=== PATIENT | female | born 1970 | race Caucasian/White ===

== ENCOUNTER 2023-07-25 08:23 | Outpatient (AMB) | payer OTHER, SELFPAY ==
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
[2023-07-25 08:35] VITALS: BP 122/94; BMI 24.8
== END 2023-07-25 09:53 | disposition home or self-care (01) ==
PROVIDERS: PCP Nurse Practitioner Family; Visit Provider Nurse Practitioner Family
DX: H81.93 Unspecified disorder of vestibular function, bilateral (principal); F07.81 Postconcussional syndrome; G44.309 Post-traumatic headache, unspecified, not intractable; Z04.3 Encounter for examination and observation following other accident
CPT/HCPCS: 99204

== ENCOUNTER → 2023-07-25 08:23 | Outpatient (BNVA) | payer OTHER, SELFPAY | PROVIDERS: Visit Provider Nurse Practitioner Family ==

== ENCOUNTER 2023-09-03 15:31 | Outpatient (AMB) | payer OTHER, SELFPAY ==
--- NOTE | 2023-09-03 15:31 | MHC.OFFVIS ---
Intake Intake Visit Reasons: 6wk f/u Post-concussive Syndrome/Nausea-Conf Intake Note: patient presents for follow up. Patient states I don't think anything has really changed. Allergies codeine Allergy (Severe, Verified 09/03/23 15:32) Rash duloxetine Allergy (Severe, Verified 09/03/23 15:32) Rash Penicillins Allergy (Severe, Verified 09/03/23 15:32) Anaphylaxis Sulfa (Sulfonamide Antibiotics) Allergy (Severe, Verified 09/03/23 15:32) Anaphylaxis clindamycin Allergy (Unknown, Verified 09/03/23 15:32) Unknown erythromycin base Allergy (Unknown, Verified 09/03/23 15:32) Unknown Medication List - Last Reconciled 09/03/23 by ANG Kim bupropion HCl (Wellbutrin XL) 300 mg PO QAM clonidine HCl 0.1 mg PO BID magnesium oxide 400 mg PO BEDTIME 30 days methylphenidate HCl 10 mg PO BID 30 days ondansetron 4 - 8 mg (1 - 2 x 4 mg) PO BID-TID PRN 30 days riboflavin (vitamin B2) 400 mg PO DAILY 30 days sumatriptan succinate 50 - 100 mg orally at onset of headache, may repeat in 2 hrs PRN; max 2 tabs per day or 4 tabs/week (may take with Advil) 30 days trazodone 100 mg PO BEDTIME vortioxetine (Trintellix) 10 mg PO DAILY HPI HPI Comments History of Present Illness Details 52-yr-old female presents for f/u televideo visit via [email or web address]. Since the last visit, on 08/20/23, pt reported On Friday night [08/15/23] I was getting out of bed, got dizzy, fell over the dog stairs and my right hip slammed into the bed post, I then went down to the floor landing on my back. Friday, Sat & Sun I had neck/pain (which is better now) and have been dizzy and feel like my head is full since Since, she has had increased nausea, lightheadedness. Having 2-3 migarine days per week. Migraine and nausea can be triggered by triggered by car rides or doing too much. Zofran and Sumatriptan has been helpful. She has not seen much change in her cognitive difficulties- since starting Methylphenidtae 5mg bid. She has been having difficulty using her CPAP- as the full face mask causes neck and head pain. [facility] Medical History (Updated 07/25/23 @ 17:04 by ANG Kim) Stage 2 chronic kidney disease TMJ arthralgia Depression with anxiety PTSD (post-traumatic stress disorder) Pelvic floor dysfunction Insomnia HLD (hyperlipidemia) History of hypertension GRETCHEN (generalized anxiety disorder) Endometriosis Diverticulosis Constipation Surgical History Hx of appendectomy H/O rectocele repair H/O ovarian cystectomy H/O: hysterectomy History of right salpingo-oophorectomy Status post anterior colporrhaphy History of left salpingo-oophorectomy Family History Father Coronary artery disease Hyperlipidemia HTN (hypertension) Brother Coronary artery disease Myocardial infarction Sister Coronary artery disease Maternal Grandmother Stroke Maternal Grandfather Stroke Social History Alcohol intake: current Patient Tobacco Use Status: Never used Tobacco Review of Systems Const All systems reviewed & are unremarkable except as noted in HPI and below Physical Exam Const General: cooperative and no acute distress Orientation/consciousness: patient oriented x3 Resp Effort & Inspection: normal respiratory effort and able to speak in complete sentences Neuro General: patient oriented x3, gait normal and CN's II-XI intact bilaterally Cognition (Neuro): normal cognition Motor exam (neuro): 5/5 motor strength present throughout Psych Appearance: grossly normal Mental Status: mental status grossly normal Speech and movement: Normal speech and movement present Affect: normal affect Attitude: cooperative Thought process: Normal thought process present Thought content: Normal thought content present Insight: Good insight present (Psych) Judgement: Good judgement present (Psych) Assessment & Plan Assessment & Plan (1) Postconcussive syndrome: Code(s): F07.81 - Postconcussional syndrome (2) Vestibular dysfunction after traumatic injury: Code(s): H81.90 - Unspecified disorder of vestibular function, unspecified ear (3) Migraine without aura: Code(s): G43.009 - Migraine without aura, not intractable, without status migrainosus (4) Cognitive dysfunction: Code(s): F09 - Unspecified mental disorder due to known physiological condition Plan For ELIZ: Continue APAP [id number] nightly > 4 hrs. Could consider trial of Amitriptyline or Gabapentin, may allow improved mask tolerance. For overall postconcussive management: Continue to try to optimize good self-care, including but not limited to maintaining a healthy diet, adequate fluid intake, adequate sleep, and engaging in regular physical activity. Track headaches For cognitive difficulties: Trial increasing Methylphenidate from 5mg to 10mg bid. Consider referal back to [employer] [employer]/OT Neuropsych eval as ordered. For vestibular s/s: Consider trial of verapamil, amitripyline, and/or referral back to vestibular PT. For acute postconcussive treatment: Continue Zofran prn. Continue Sumatriptan 100mg tab, 1/2 - 1 tab (50-100mg) at onset of headache, may repeat in 2 hours. Max of 2 tabs (200mg) per 24 hours. May adjunct with OTC Tylenol 650mg q 4 hours, Ibuprofen 600mg q 6 hours, or Naproxen 440mg q 12 hrs prn. Previous acute migraine medication trials: Fioricet- helpful but stopped when her migraines subsided. Acute migraine medication contraindications: None at this time For postconcussive headache prevention medication: Riboflavin 400mg qam Magnesium 400mg qhs Previous migraine prevention medication trials: None Migraine prevention medication contraindications: None Pt advsied to abstain from work through f/u visit. Pt to follow-up in 3 months or sooner prn. Medications: New methylphenidate HCl Partial Fill upon patient request. 10 mg PO BID 30 days 60 tabs 0RF Changed From ondansetron 4 - 8 mg (1 - 2 x 4 mg) PO BID-TID 14 days PRN 30 tabs 1RF nausea and vomiting To ondansetron 4 - 8 mg (1 - 2 x 4 mg) PO BID-TID 30 days PRN 30 tabs 1RF nausea and vomiting Refilled sumatriptan succinate (0.5 - 1 x 100 mg) 50 - 100 mg orally at onset of headache, may repeat in 2 hrs PRN; max 2 tabs per day or 4 tabs/week (may take with Advil) 30 days 12 tabs 6RF migraine headache magnesium oxide may hold for loose stools 400 mg PO BEDTIME 30 days 30 tabs 6RF riboflavin (vitamin B2) 400 mg PO DAILY 30 days 30 tabs 6RF Discontinued methylphenidate HCl Partial Fill upon patient request. Discontinued Reason: Doctor's Order 5 mg PO BID 30 days 60 tabs 0RF Telehealth Telehealth Location of provider rendering services: practice address Location of patient: address on file Patient Identification confirmed using: Name, : Yes Telehealth method: video Patient verbally consented to treatment: Yes Patient verbally consented to billing insurance company: Yes Patient informed of any privacy concerns related to visit: Yes Minutes spent on Phone/Video with Pt.: 21 Coding Level of Care Code Tele Est Pt Level 4 (01361) Diagnoses Postconcussive syndrome F07.81 Vestibular dysfunction after traumatic injury H81.90 Migraine without aura G43.009 Cognitive dysfunction F09
== END 2023-09-03 16:00 ==
PROVIDERS: PCP Nurse Practitioner Family; Visit Provider Nurse Practitioner Family
DX: F06.70 Mild neurocognitive disorder due to known physiological condition without behavioral disturbance (principal); F07.81 Postconcussional syndrome; H81.90 Unspecified disorder of vestibular function, unspecified ear; G44.309 Post-traumatic headache, unspecified, not intractable; Z87.820 Personal history of traumatic brain injury
CPT/HCPCS: 99214

== ENCOUNTER → 2023-09-03 15:31 | Outpatient (BNVA) | payer OTHER, SELFPAY | PROVIDERS: PCP Nurse Practitioner Family; Visit Provider Nurse Practitioner Family ==

== ENCOUNTER 2023-12-17 15:36 | Outpatient (AMB) | payer OTHER, SELFPAY ==
--- NOTE | 2023-12-17 15:36 | A.OFFVIS_ITS ---
Intake Intake Visit Reasons: 3 mo f/u Postconcussive syndrome/Nausea-LVM Intake Note: she put me on adhd medication and had adverse reaction I was sleeping alot,I stopped that a while ago. Allergies codeine Allergy (Severe, Verified 12/17/23 15:38) Rash duloxetine Allergy (Severe, Verified 12/17/23 15:38) Rash Penicillins Allergy (Severe, Verified 12/17/23 15:38) Anaphylaxis Sulfa (Sulfonamide Antibiotics) Allergy (Severe, Verified 12/17/23 15:38) Anaphylaxis clindamycin Allergy (Unknown, Verified 12/17/23 15:38) Unknown erythromycin base Allergy (Unknown, Verified 12/17/23 15:38) Unknown Medication List - Last Reconciled 12/17/23 by ANG Kim bupropion HCl (Wellbutrin XL) 300 mg PO QAM clonidine HCl 0.1 mg PO BID magnesium oxide 400 mg PO BEDTIME 30 days ondansetron 4 - 8 mg (1 - 2 x 4 mg) PO BID-TID PRN 30 days riboflavin (vitamin B2) 400 mg PO DAILY 30 days rizatriptan 5 - 10 mg (0.5 - 1 x 10 mg) PO Q2H PRN 21 days sumatriptan succinate 50 - 100 mg orally at onset of headache, may repeat in 2 h rs PRN; max 2 tabs per day or 4 tabs/week (may take with Advil) 30 days trazodone 100 mg PO BEDTIME vortioxetine (Trintellix) 10 mg PO DAILY HPI HPI Comments History of Present Illness Details 53-yr-old female presents for f/u televi kimmy visit via [facility]. Pt reports she underwent emergency cholecystectomy on Nov 08, 2024. Prior to the procedure, she had been nausea, had GI pain, and had a 20 lb weight loss. She did have a mediation reaction, so was kept overnight. She states her GI s/s instantly felt better. She is working w/ PT for both vestibular tx at [facility] in [facility] and back tx at [facility] in [place]. Can have good days and bad days. Today was a more off day at vestibular therapy- did more dry needling behind the ears and head for vestibular and headache s/s. She has been referred to [facility] pain management for the back pain. She did get altagracia-tinted blue light filtering glasses- added to her usual glasses prescription- which is very helpful. However, when she had to return the glasses to have them updated, she had a daily headache. Since receiving them back- the migraine headaches are better. Now having 1 migraine day per week- the sumatriptan helps within an hour. She was given an interval order of Rizatriptan- for a more prolonged headache, unsure of effect as headache was already set in. She did stop the methylphenidate- felt it was making her too sleepy. Still has some cognitive difficulties- states she tried to begin to manage her own doctor's appointments and rods, however she made many mistakes, so now her has oversee her doing this.. Her PT is incorporating cognitive exercises into her vestibular tx. She did psychological evaluation in October, was referred to psychotherapy, which she is doing, however she states it is hard, is a difficult adjustment to not being able to work or even manage her usual activities on her own. [facility] Medical History (Updated 07/25/23 @ 17:04 by ANG Kim) Stage 2 chronic kidney disease TMJ arthralgia Depression with anxiety PTSD (post-traumatic stress disorder) Pelvic floor dysfunction Insomnia HLD (hyperlipidemia) History of hypertension GRETCHEN (generalized anxiety disorder) Endometriosis Diverticulosis Constipation Surgical History Hx of appendectomy H/O rectocele repair H/O ovarian cystectomy H/O: hysterectomy History of right salpingo-oophorectomy Status post anterior colporrhaphy History of left salpingo-oophorectomy Family History Father Coronary artery disease Hyperlipidemia HTN (hypertension) Brother Coronary artery disease Myocardial infarction Sister Coronary artery disease Maternal Grandmother Stroke Maternal Grandfather Stroke Social History Alcohol intake: current Patient Tobacco Use Status: Never used Tobacco Physical Exam Const General: cooperative and no acute distress Orientation/consciousness: patient oriented x3 Resp Effort & Inspection: normal respiratory effort and able to speak in complete sentences Neuro General: patient oriented x3 Cognition (Neuro): normal cognition Psych Appearance: grossly normal Mental Status: mental status grossly normal Speech and movement: Normal speech and movement present Affect: normal affect Attitude: cooperative Results Reviewed Results Reviewed: 10/14/2023, NEUROPSYCHOLOGICAL EVALUATION FEEDBACK SESSION Patient: ??TRICIA JUAREZ? Age: ??52 years?? ? Sex: ?Female?? ? : ?1970 Associated Diagnoses: ??None Author: ??Connor PHD, Debbie Merritt Met with the patient to discuss results and recommendations from her neuropsychological evaluation. She was accompanied by her . For the full report, please refer to the visit dated 09/30/2023. ? Overall, the patient demonstrated globally blunted cognitive scores in the context of variable scores on measures of performance validity and severe nausea, dizziness, and fatigue. ?Her memory performance was not amnestic, and rather suggested difficulties with attending to and efficiently processing the stimuli presented, which seemed to be impacted by her notable physiological symptoms. Given her significant difficulty tolerating testing and variable performance on measures of performance validity, her scores are not felt to reflect an accurate estimate of her highest cognitive abilities and her performance appeared to be very affected by her physical symptoms. ?Of note, this pattern of difficulty seems to reflect the cognitive problems she described in everyday life. ?It is not likely that her remote concussions explain these prolonged symptoms, and recovery from her uncomplicated concussions would be expected by this time. ?Regardless, she is experiencing persistent symptoms, which are understandably distressing. Among individuals with persistent symptoms following concussions, distress about one?s symptoms, avoidance of activities that trigger symptoms, and negative emotions such as guilt, shame, and feelings of incapacity can lead to a maladaptive cycle of thoughts, emotions, and behaviors that worsen these problems. ?Her cognitive symptoms are also likely impacted by visual/vestibular symptoms, fatigue, depressed mood, re-emergence of PTSD symptoms, and her chronic difficulties with pain, GI distress, inconsistently treated sleep apnea, and disrupted sleep.? ? The patient recently underwent cholecystectomy to address nausea/vomiting, and she may also benefit from additional treatment of her vestibular symptoms through physical therapy to aid in management of her dizziness and balance problems. A slow and gradual approach to increasing the intensity of therapy may be beneficial in assisting her with increasing her tolerance to therapy and reducing distress around her vestibular symptoms. ?The patient is currently engaged in treatment with a psychiatrist to manage mental health related s ymptoms and she is strongly encouraged to continue this treatment. ?She would also likely benefit from additional counseling or psychotherapy to aid in managing her recurring trauma symptoms. ?She is also encouraged to continue following up with her primary care provider and GI to address her gastrointestinal symptoms. ?She may wish to discuss with her referring provider whether a referral to a neuro-bindery library technical assistant to rule out any underlying visual problems would be of benefit given her difficulties with eye tracking and dizziness.? ? 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 For overall postconcussive management: Continue to try to optimize good self-care, including but not limited to maintaining a healthy diet, adequate fluid intake, adequate sleep, and engaging in regular physical activity. Track headaches ? For cognitive difficulties: Stop Methylphenidate cause drowsiness Continue cognitive therapy. Continue bupropion, can have cognitive difficulties. Neuropsych eval reviewed. ? For vestibular s/s: Continue vestibular therapy. Consider trial of verapamil, amitripyline.. ? For acute postconcussive treatment: Continue Zofran prn. Continue Sumatriptan 100mg tab, 1/2 - 1 tab (50-100mg) at onset of headache, may repeat in 2 hours. Max of 2 tabs (200mg) per 24 hours. May adjunct with OTC Tylenol 650mg q 4 hours, Ibuprofen 600mg q 6 hours, or Naproxen 440mg q 12 hrs prn. Rizatriptan p.r.n. Previous acute migraine medication trials: Fioricet- helpful but stopped when her migraines subsided. Acute migraine medication contraindications: None at this time ? For postconcussive headache prevention: Continue resistant to blue light filter in classes. Riboflavin 400mg qam Magnesium 400mg qhs Previous migraine prevention medication trials: None Migraine prevention medication contraindications: None ? Pt advsied to abstain from work through f/u visit. ? Pt to follow-up in 3 months or sooner prn. Medications: Discontinued methylphenidate HCl Partial Fill upon patient request. Discontinued Reason: Patient no longer taking 10 mg PO BID 30 days 60 tabs 0RF Telehealth Telehealth Location of provider rendering services: practice address Location of patient: address on file Patient Identification confirmed using: Name, : Yes Telehealth method: video Patient verbally consented to treatment: Yes Patient verbally consented to billing insurance company: Yes Patient informed of any privacy concerns related to visit: Yes Minutes spent on Phone/Video with Pt.: 40 Coding Level of Care Code Tele Est Pt Level 4 (88387) Diagnoses Postconcussive syndrome F07.81 Migraine without aura G43.009 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
== END 2023-12-17 17:00 | disposition home or self-care (01) ==
LOC: HO.HSMS 15:36
PROVIDERS: PCP Nurse Practitioner Family; Visit Provider Nurse Practitioner Family
DX: G44.309 Post-traumatic headache, unspecified, not intractable (principal); F07.81 Postconcussional syndrome; H81.90 Unspecified disorder of vestibular function, unspecified ear; R41.89 Other symptoms and signs involving cognitive functions and awareness
CPT/HCPCS: 99214

== ENCOUNTER → 2023-12-17 15:36 | Outpatient (BNVA) | payer OTHER, SELFPAY | PROVIDERS: PCP Nurse Practitioner Family; Visit Provider Nurse Practitioner Family ==

== ENCOUNTER → 2024-05-11 08:22 | Outpatient (BNVA) | payer OTHER, SELFPAY | PROVIDERS: PCP Nurse Practitioner Family; Visit Provider Nurse Practitioner Family ==

== ENCOUNTER 2024-05-11 08:28 | Outpatient (AMB) | payer OTHER, SELFPAY ==
--- NOTE | 2024-05-11 08:22 | A.OFFVIS_ITS ---
Intake Visit Reasons: 3 mo f/u-CONF Intake Note: Patient following up on several issues she's having. Allergies codeine Allergy (Severe, Verified 05/11/24 08:28) Rash duloxetine Allergy (Severe, Verified 05/11/24 08:28) Rash Penicillins Allergy (Severe, Verified 05/11/24 08:28) Anaphylaxis Sulfa (Sulfonamide Antibiotics) Allergy (Severe, Verified 05/11/24 08:28) Anaphylaxis clindamycin Allergy (Unknown, Verified 05/11/24 08:28) Unknown erythromycin base Allergy (Unknown, Verified 05/11/24 08:28) Unknown Medication List - Last Reconciled 05/11/24 by ANG Kim bupropion HCl XL (Wellbutrin XL) 300 mg PO QAM clonidine HCl 0.1 mg PO BID magnesium oxide 400 mg PO BEDTIME 30 days ondansetron 4 - 8 mg (1 - 2 x 4 mg) PO BID-TID PRN 30 days pantoprazole 40 mg PO DAILY propranolol 10 mg PO TID riboflavin (vitamin B2) 400 mg PO DAILY 30 days rizatriptan 5 - 10 mg (0.5 - 1 x 10 mg) PO Q2H PRN 21 days sumatriptan succinate 50 - 100 mg orally at onset of headache, may repeat in 2 hrs PRN; max 2 tabs per day or 4 tabs/week (may take with Advil) 30 days trazodone 100 mg PO BEDTIME vortioxetine (Trintellix) 10 mg PO DAILY HPI Comments Details: 53-yr-old female presents for f/u televideo visit via [facility] Pt had a hospital admission in March for abd pain. Dx w/ gastritis. Has GI appt tomorrow. Just completing a 10 day course of Prednisone for poison Alejandra- (has 2 days left). Overall, the migraine headaches have been better. Now having 1 full migraine per month. She is still working w/ PT for the dizziness. Activity tolerance had increased, but still had dizziness, nausea, balance is worse w/ increased activity. Still not driving. Still has cognitive difficulties- word searching difficulties, recall. her is supportive. Pt reports last week, she took a helicopter ride. During the ride, she started to not feel well and she has not felt well since- maybe she feels a little bit better but any activity triggers all her s/s. She has been nauseous, dizziness, fatigued, ears/head feel stuffy and dizzy, photophobia. Has not been able to do her eye jumping exercises. It is more difficult to be in a car. She does not feel like herself- she feels that she is not connecting with others. She has reached out to her psychiatrist. Denies recent fevers, sinus congestion. [facility] Medical History (Updated 05/11/24 @ 08:52 by ANG Kim) Stage 2 chronic kidney disease TMJ arthralgia Depression with anxiety PTSD (post-traumatic stress disorder) Pelvic floor dysfunction Insomnia HLD (hyperlipidemia) History of hypertension GRETCHEN (generalized anxiety disorder) Endometriosis Diverticulosis Constipation Surgical History Hx of appendectomy H/O rectocele repair H/O ovarian cystectomy H/O: hysterectomy History of right salpingo-oophorectomy Status post anterior colporrhaphy History of left salpingo-oophorectomy Family History Father Coronary artery disease Hyperlipidemia HTN (hypertension) Brother Coronary artery disease Myocardial infarction Sister Coronary artery disease Maternal Grandmother Stroke Maternal Grandfather Stroke Social History Alcohol intake: current Patient Tobacco Use Status: Never used Tobacco Physical Exam Const General: cooperative and no acute distress Orientation/consciousness: patient oriented x3 Resp Effort & Inspection: normal respiratory effort and able to speak in complete sentences Neuro General: patient oriented x3 Cognition (Neuro): normal cognition Psych Appearance: grossly normal Mental Status: mental status grossly normal Speech and movement: Normal speech and movement present Affect: normal affect Attitude: cooperative Telehealth Telehealth Telehealth Platform: [facility] Location of provider rendering services: practice address Location of patient: address on file Patient Identification confirmed using: Name, : Yes Telehealth method: video Patient verbally consented to treatment: Yes Patient verbally consented to billing insurance company: Yes Patient informed of any privacy concerns related to visit: Yes Minutes spent on Phone/Video with Pt.: 26 Assessment & Plan Assessment & Plan (1) Air sickness: Code(s): T75.3XXA - Motion sickness, initial encounter Category: Medical Plan For ELIZ: Continue APAP [id number] nightly > 4 hrs. ? For overall postconcussive management: Continue to try to optimize good self-care, including but not limited to maintaining a healthy diet, adequate fluid intake, adequate sleep, and engaging in regular physical activity. Track headaches ? For cognitive difficulties: Continue cognitive therapy exercises Continue bupropion, can have cognitive difficulties. Neuropsych eval previously reviewed. Previous tx trials- Methylphenidate caused drowsiness ? For vestibular s/s: Acetazolamide 250mg bid x's 1 week - for exacerbation of vestibular s/s following a helicopter ride. Scopolamine patch q 72hr- prn boat/water travel- pt has upcoming vacation to [facility]. Continue vestibular therapy. Consider trial of verapamil, amitripyline. ? For acute postconcussive treatment: Continue Zofran prn. Continue Sumatriptan 100mg tab, 1/2 - 1 tab (50-100mg) at onset of headache, may repeat in 2 hours. Max of 2 tabs (200mg) per 24 hours. May adjunct with OTC Tylenol 650mg q 4 hours, Ibuprofen 600mg q 6 hours, or Naproxen 440mg q 12 hrs prn. Pt not using Rizatriptan p.r.n. Previous acute migraine medication trials: Fioricet- helpful but stopped when her migraines subsided. Acute migraine medication contraindications: None at this time ? For postconcussive headache prevention: Continue blue light filtering glasses. Riboflavin 400mg qam Magnesium 400mg qhs Previous migraine prevention medication trials: None Migraine prevention medication contraindications: None ? Pt advised to abstain from work through f/u visit. ? Pt to follow-up in 3 months or sooner prn. Medications: New acetazolamide 250 mg PO BID 14 tabs 0RF 7 days T75.3XXA - Motion sickness, initial encounter scopolamine base 1 patch transdermal Q72H PRN 4 ea 0RF motion sickness 14 days Refilled riboflavin (vitamin B2) 400 mg PO DAILY 30 tabs 6RF 30 days ondansetron 4 - 8 mg (1 - 2 x 4 mg) PO BID-TID PRN 30 tabs 1RF nausea and v omiting 30 days magnesium oxide may hold for loose stools 400 mg PO BEDTIME 30 tabs 6RF 30 days Discontinued rizatriptan max 2 tabs per day or 4 tabs per week Discontinued Reason: Doctor's Order 5 - 10 mg (0.5 - 1 x 10 mg) PO Q2H 21 days PRN 12 tabs 3RF migraine headache Coding Level of Care Code Tele Est Pt Level 4 (63449) Diagnoses Air sickness T75.3XXA
== END 2024-05-11 15:16 | disposition home or self-care (01) ==
PROVIDERS: PCP Nurse Practitioner Family; Visit Provider Nurse Practitioner Family
DX: T75.3XXA Motion sickness, initial encounter (principal); G44.309 Post-traumatic headache, unspecified, not intractable
CPT/HCPCS: 99214

== ENCOUNTER 2024-10-27 11:21 | Outpatient (AMB) | payer OTHER, SELFPAY ==
--- NOTE | 2024-10-27 11:22 | A.OFFVIS_ITS ---
Intake Visit Reasons: 6 Month f/u Intake Note: Pt presents to the office as a telehealth appt today for a 6 month follow up. Pt states she is overall feeling okay and states she seems to be making improvement and is still doing physical therapy at [facility]. Allergies codeine Allergy (Severe, Verified 10/27/24 11:22) Rash duloxetine Allergy (Severe, Verified 10/27/24 11:22) Rash Penicillins Allergy (Severe, Verified 10/27/24 11:22) Anaphylaxis Sulfa (Sulfonamide Antibiotics) Allergy (Severe, Verified 10/27/24 11:22) Anaphylaxis clindamycin Allergy (Unknown, Verified 10/27/24 11:22) Unknown erythromycin base Allergy (Unknown, Verified 10/27/24 11:22) Unknown Medication List - Last Reconciled 10/27/24 by Allyson Cedillo, ANG bupropion HCl XL (Wellbutrin XL) 300 mg PO QAM eletriptan 40 mg PO Q2-4H PRN 30 days hydroxyzine HCl 25 mg PO QID magnesium oxide 400 mg PO BEDTIME 30 days ondansetron 4 - 8 mg (1 - 2 x 4 mg) PO BID-TID PRN 30 days pantoprazole 40 mg PO DAILY riboflavin (vitamin B2) 400 mg PO DAILY 30 days scopolamine base 1 patch transdermal Q72H PRN 14 days trazodone 100 mg PO BEDTIME HPI Comments Details: 54-yr-old female presents for f/u televideo visit via [employer]- for postconcussive syndrome. Patient denies any significant interval medical changes. Patient reports exacerbation of her dizziness after riding in a helicopter, took a month to resolve w/ using acetazolamide and scopolamine patch. Overall, the migraine headaches are improving. Migraine attacks seem to come in spurts- may have a few back to back and then 1 per week. Sometimes triggered by head movements are PT. Recently trialed patient on eletriptan in place of sumatriptan, which she feels works better. She is still working w/ PT for the dizziness. Activity tolerance had increased, still has dizziness, nausea, balance is worse w/ increased activity. She is not driving- her license was previously revoked due to short-term memory lapses, not recognizing shapes, depth perception issues. States she has a hearing in a few months to see if she would be eligible to enroll in [employer] driver's education, as she is hoping to regain her license to she can not least drive herself to her doctor's appointments Still has cognitive difficulties, which is frustrating- word searching difficulties, recall. Her is supportive. She has started to see a therapist on a weekly basis to help her manage anxiety and PTSD symptoms related to adapting to her new health status neurocognitive limitations. [facility] Compliance Report Usage 09/26/2024 - 10/25/2024 Average usage (days used) 6 hours 16 minutes [employer] 11 AutoSet Serial number [id number] Mode AutoSet Min Pressure 5 cmH2O Max Pressure 15 cmH2O EPR Fulltime EPR level 2 Response Standard Therapy Pressure - cmH2O Median: 5.4 95th percentile: 6.8 Maximum: 7.4 Leaks - L/min Median: 0.0 95th percentile: 6.8 Maximum: 25.0 Events per hour AI: 1.5 HI: 0.1 AHI: 1.6 PFSH Medical History Stage 2 chronic kidney disease TMJ arthralgia Depression with anxiety PTSD (post-traumatic stress disorder) Pelvic floor dysfunction Insomnia HLD (hyperlipidemia) History of hypertension GRETCHEN (generalized anxiety disorder) Endometriosis Diverticulosis Constipation Surgical History Hx of appendectomy H/O rectocele repair H/O ovarian cystectomy H/O: hysterectomy History of right salpingo-oophorectomy Status post anterior colporrhaphy History of left salpingo-oophorectomy Family History Father Coronary artery disease Hyperlipidemia HTN (hypertension) Brother Coronary artery disease Myocardial infarction Sister Coronary artery disease Maternal Grandmother Stroke Maternal Grandfather Stroke Social History Alcohol intake: current Patient Tobacco Use Status: Never used Tobacco Physical Exam Const General: cooperative and no acute distress Orientation/consciousness: patient oriented x3 Resp Effort & Inspection: normal respiratory effort and able to speak in complete sentences Neuro General: patient oriented x3 Cognition (Neuro): normal cognition Psych Appearance: grossly normal Mental Status: mental status grossly normal Speech and movement: Normal speech and movement present Affect: normal affect Attitude: cooperative Telehealth Telehealth Telehealth Platform: Telephone Location of provider rendering services: practice address Location of patient: address on file Patient Identification confirmed using: Name, : Yes Telehealth method: video Patient verbally consented to treatment: Yes Patient verbally consented to billing insurance company: Yes Patient informed of any privacy concerns related to visit: Yes Minutes spent on Phone/Video with Pt.: 21 Assessment & Plan Assessment & Plan (1) Postconcussive syndrome: Code(s): F07.81 - Postconcussional syndrome Category: Medical (2) 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 ? For overall postconcussive management: Continue to try to optimize good self-care, including but not limited to maintaining a healthy diet, adequate fluid intake, adequate sleep, and engaging in regular physical activity. Track headaches ? For cognitive difficulties: Will request follow-up neuropsych evaluation to assess status of neurocognitive functioning. We will request PATIENT'S LIBRARIAN eval entry for postconcussive cognitive difficulties. Continue bupropion, can help cognitive difficulties. Neuropsych eval previously reviewed. Previous tx trials- Methylphenidate caused drowsiness ? For vestibular s/s: Scopolamine patch q 72hr- prn boat/water travel. Hold Acetazolamide, could consider retrial for air travel. Continue vestibular therapy. Consider trial of verapamil, amitripyline. ? For acute postconcussive treatment: Continue Zofran prn. Continue eletriptan 40 mg tab, 1/2 - 1 tab (20-40 mg) at onset of headache, may repeat in 2 hours. Max of 2 tabs (80 mg) per 24 hours. May adjunct with OTC Tylenol 650mg q 4 hours, Ibuprofen 600mg q 6 hours, or Naproxen 440mg q 12 hrs prn. Previous acute migraine medication trials: Fioricet- helpful but stopped when her migraines subsided. Sumatriptan not effective. Rizatriptan not fully effective Acute migraine medication contraindications: None at this time Future considerations: Nurtec or Ubrelvy. ? For postconcussive headache prevention: Continue blue light filtering glasses. Riboflavin 400mg qam Magnesium 400mg qhs Previous migraine prevention medication trials: None Migraine prevention medication contraindications: None ? Pt advised to abstain from work through f/u visit. ? Will follow-up upon review of above and patient to follow-up in clinic in 6 months or sooner prn. Orders: Referrals Neuropsychiatry Referral F07.81 - Postconcussional syndrome, F09 - Unspecified mental disorder due to known physiological condition Speech and Hearing Referral F07.81 - Postconcussional syndrome, F09 - Unspecified mental disorder due to known physiological condition Medications: Refilled eletriptan do not exceed 2 doses per 24 hrs 40 mg PO Q2-4H 30 days PRN 12 tabs 6RF m igraine headache scopolamine base 1 patch transdermal Q72H 14 days PRN 4 ea 1RF motion sickness ondansetron 4 - 8 mg (1 - 2 x 4 mg) PO BID-TID 30 days PRN 30 tabs 1RF nausea and vomiting riboflavin (vitamin B2) 400 mg PO DAILY 30 days 30 tabs 6RF magnesium oxide may hold for loose stools 400 mg PO BEDTIME 30 days 30 tabs 6RF Coding Level of Care Code Tele Est Pt Level 4 (63928) Diagnoses Postconcussive syndrome F07.81 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 Migraine without aura G43.009 Air sickness T75.3XXA
== END 2024-10-27 12:45 | disposition home or self-care (01) ==
LOC: HO.HSMS 11:21
PROVIDERS: PCP Nurse Practitioner Family; Visit Provider Nurse Practitioner Family
DX: H81.90 Unspecified disorder of vestibular function, unspecified ear (principal); G44.309 Post-traumatic headache, unspecified, not intractable; F07.81 Postconcussional syndrome; F09 Unspecified mental disorder due to known physiological condition; T75.3XXA Motion sickness, initial encounter
CPT/HCPCS: 99214

== ENCOUNTER → 2024-10-27 11:21 | Outpatient (BNVA) | payer OTHER, SELFPAY | PROVIDERS: PCP Nurse Practitioner Family; Visit Provider Nurse Practitioner Family ==

== ENCOUNTER 2025-03-30 14:29 | Outpatient (AMB) | payer MEDICARE, SELFPAY ==
--- NOTE | 2025-03-30 14:29 | MHC.OFFVIS ---
Intake Visit Reasons: Follow up Intake Note: Patient following up Allergies codeine Allergy (Severe, Verified 03/30/25 14:29) Rash duloxetine Allergy (Severe, Verified 03/30/25 14:29) Rash Penicillins Allergy (Severe, Verified 03/30/25 14:29) Anaphylaxis Sulfa (Sulfonamide Antibiotics) Allergy (Severe, Verified 03/30/25 14:29) Anaphylaxis clindamycin Allergy (Unknown, Verified 03/30/25 14:29) Unknown erythromycin base Allergy (Unknown, Verified 03/30/25 14:29) Unknown Medication List - Last Reconciled 03/30/25 by ANG Kim bupropion HCl XL (Wellbutrin XL) 300 mg PO QAM duloxetine 60 mg PO DAILY eletriptan 40 mg PO Q2-4H PRN 30 days hydroxyzine HCl 25 mg PO QID magnesium oxide 400 mg PO BEDTIME 30 days ondansetron 4 - 8 mg (1 - 2 x 4 mg) PO BID-TID PRN 30 days pantoprazole 40 mg PO DAILY riboflavin (vitamin B2) 400 mg PO DAILY 30 days scopolamine base 1 patch transdermal Q72H PRN 14 days trazodone 100 mg PO BEDTIME HPI Comments Details: 54-yr-old female presents for f/u televideo visit via [employer]- for postconcussive syndrome and ELIZ. Patient notes that her blood pressure has been more elevated recently, with systolic BP up to 160. She plans to follow-up with PCP regarding this. She is scheduled for SECURITY SALES MANAGER intake in May 2025. She has not heard from neuropsychology office to schedule follow-up exam. She is continuing to work w/ PT, on vestibular s/s, as well as some of the cognitive s/s. Patient's vestibular physical therapist has reached out to us with concerns that patient continues to have frequent vestibular in migraine symptoms despite compliance with her overall treatment regimen. She continues to have periods of 1-2 weeks of daily severe Loyda Scales migraine attacks, and then may have 1-2 weeks with 1 severe migraine attack lasting 1-2 days per week. She continues to be quite photophobic Migraine continues to be triggered by head movements, increased activity, looking at a computer for greater than 5-10 minutes, reading a physical book. Eletriptan has been more effective than sumatriptan, however her insurance no longer covers eletriptan. Baseline migraine characteristics: Bilateral, right greater than left, occipital or frontal pressure headache associated with photophobia, phonophobia, nausea, brain fog, activity intolerance- has to sit still and upright. She continues to have bouts of dizziness, nausea, and balance difficulties, which last several minutes, and again she needs to sit down and be still. When she is able to move again, she avoids the previous triggering activity, and thus tries to do something else instead. She does actively try to avoid both dizziness and migraine triggers. 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 Patient reports she continues to have cognitive difficulties, such as word searching difficulties, losing her train of thought. 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 Thus, she has needed to throw out baked goods and supplies. This is frustrating for her, as she would like to be able to be more active. Her is supportive. She continues to see her therapist on a regular basis to help her manage anxiety and PTSD symptoms related to adapting to her new health status and neurocognitive limitations. Patient states her long-term disability renewal was denied, as they did not feel her symptoms, or the documentation of her symptoms, would prevent her from being able to work a full-time setting. 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, which required frequent computer use and ability to multi task [facility] Medical History (Reviewed 03/30/25 @ 14: by RUDI Zepeda) Stage 2 chronic kidney disease TMJ arthralgia Depression with anxiety PTSD (post-traumatic stress disorder) Pelvic floor dysfunction Insomnia HLD (hyperlipidemia) History of hypertension GRETCHEN (generalized anxiety disorder) Endometriosis Diverticulosis Constipation Surgical History (Updated 03/30/25 @ 14:31 by RUDI Zepeda) Hx of cholecystectomy Hx of appendectomy H/O rectocele repair H/O ovarian cystectomy H/O: hysterectomy History of right salpingo-oophorectomy Status post anterior colporrhaphy History of left salpingo-oophorectomy Family History Father Coronary artery disease Hyperlipidemia HTN (hypertension) Brother Coronary artery disease Myocardial infarction Sister Coronary artery disease Maternal Grandmother Stroke Maternal Grandfather Stroke Social History Alcohol intake: current Patient Tobacco Use Status: Never used Tobacco Physical Exam Const General: cooperative Nutritional Appearance: average body habitus Orientation/consciousness: patient oriented x3 Resp Effort & Inspection: normal respiratory effort and able to speak in complete sentences Neuro Other: Alert and oriented x3 with mild short-term memory lapses. Photophobia General: patient oriented x3 Psych Appearance: grossly normal Mental Status: mental status grossly normal Speech and movement: Normal speech and movement present Affect: normal affect Attitude: cooperative Telehealth Telehealth Telehealth Platform: [facility] Location of provider rendering services: practice address Location of patient: address on file Patient Identification confirmed using: Name, : Yes Telehealth method: video Patient verbally consented to treatment: Yes Patient verbally consented to billing insurance company: Yes Patient informed of any privacy concerns related to visit: Yes Minutes spent on Phone/Video with Pt.: 30 Assessment & Plan Assessment & Plan (1) Postconcussive syndrome: Code(s): F07.81 - Postconcussional syndrome Category: Medical (2) Cognitive dysfunction: Code(s): F09 - Unspecified mental disorder due to known physiological condition Category: Medical (3) 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 ? For overall postconcussive management: Continue to try to optimize good self-care, including but not limited to maintaining a healthy diet, adequate fluid intake, adequate sleep, and engaging in regular physical and social activity. Track headaches ? For cognitive difficulties: Will request follow-up neuropsych evaluation to assess status of neurocognitive functioning. SECURITY SALES MANAGER eval & tx as ordered- for postconcussive cognitive difficulties. Patient has stopped bupropion per prescribers advice. Neuropsych pushpa previously reviewed- respectively disagree that patient's cognitive symptoms can not be secondary to her repeated concussions in 2019, and again in April 2022 in which she developed ongoing vestibular dysfunction symptoms, and a 3rd concussion in October 2022, at which time she was still having vestibular symptoms from the prior concussion, but then developed further headache, dizziness, and cognitive difficulties. Patient's cognitive difficulties include both reported short-term memory lapses, word-finding difficulty, brain fog, which are exacerbated during her dizziness and migraine headaches. Please note, that by definition, in migraine, patient will have normal interictal neurological presentation. Further, cogniphobia is a recognized feature in both migraine and mild traumatic brain injury, and this is known to impact patient's testing ability, especially when patient is symptomatic during neuropsychological testing. Previous tx trials- Methylphenidate caused drowsiness ? For vestibular s/s: Scopolamine patch q 72hr- prn boat/water travel. Hold Acetazolamide, could consider retrial for air travel. Continue vestibular therapy. We will request vestibular therapy notes. Consider trial of verapamil, amitripyline. ? For acute postconcussive treatment: Continue Zofran prn. Hold eletriptan 40 mg tab order- due to insurance denial. Trial Naratriptan 2.5mg tab, 1/2 - 1 tab (1.25-2.5mg) at onset of headache, may repeat in 4 hours. Max of 2 tabs (5mg) per 24 hours. May adjunct with OTC Tylenol 650mg every 4 hours, Ibuprofen (liquigel) 600mg every 6 hours, or Naproxen (liquigel) 440mg every 12 hrs as needed. Potential adverse effects of triptans, include but are not limited to nausea, fatigue, chest tightness/tingling (usually passes within a few minutes), medication overuse headaches. Previous acute migraine medication trials: Fioricet- helpful but stopped when her migraines subsided. Sumatriptan not effective. Rizatriptan not fully effective Acute migraine medication contraindications: None at this time Future considerations: Nurtec or Ubrelvy. ? For postconcussive headache prevention: Continue blue light filtering glasses. Riboflavin 400mg qam Magnesium 400mg qhs Start Propranolol IR 10 mg b.i.d.. Potential side effects include but are not limited to fatigue, lightheadedness, low blood pressure, low heart rate, asthma/respiratory disease exacerbation, weight gain, hair loss, sexual dysfunction. Previous migraine prevention medication trials: None Migraine prevention medication contraindications: None ? Patient is again advised to abstain from work, as she is unable to work on a computer longer than 5-10 minutes at a time, can not repetitively move her head or bend over, and cognitive difficulties prevent her from doing more than 1 cognitively taxing activity at a time, additionally although headaches have improved since the last concussion in 2021, patient continues to have at least 1-2 disabling migraine headache days per week and recurrent episodes of 1-2 weeks of daily disabling migraine headaches, during which time she has marked increase in activity intolerance and exacerbation of brain fog/cognitive dysfunction. ? Will follow-up upon review of above and patient to follow-up in clinic in 6 months or sooner prn. Addendum: Patient underwent outpatient speech therapy evaluation at [facility] on 05/18/2025, results were consistent with a moderate cognitive linguistic impairment, which is significantly impacting her day-to-day functioning. With relative strengths in her visuospatial and attention skills. During the evaluation, patient was able to employ adaptive strategies throughout the evaluation.. To successfully complete her task. The therapist noted, that looking at a page which was full of shapes, and induced dizziness, patient used a blink piece of paper to cover the sections of the page that were inducing the dizziness. During the evaluation, mild word-finding difficulty was appreciated, especially during conversation. Where patient would word search or change the topic of the conversation or use an unrelated word. Patient again try to use compensatory word-finding strategies. Results did show significant difficulties in immediate and delayed recall, which the speech therapist felt was compatible with patient's reported history of forgetfulness. Thus, patient has been advised to start speech therapy treatment once a week for 12 weeks. Orders: Referrals Neuropsychiatry Referral F07.81 - Postconcussional syndrome, F09 - Unspecified mental disorder due to known physiological condition Medications: New naratriptan take 1/2 - 1 tab at onset of headache; if no relief may repeat 1 tab after at least 4 hrs; max = 2 tabs/24 hrs orally PRN; 12 tabs 6RF migraine headache 30 days propranolol 10 mg PO BID 60 tabs 3RF 30 days Coding Level of Care Code Tele Est Pt Level 4 (38249) Diagnoses Postconcussive syndrome F07.81 Cognitive dysfunction F09 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
--- OUTSIDE RECORDS SUMMARY | 2025-03-30 14:42 | XMS_ITS | Clinical Summary ---
[facility] Organization [facility] Address [address] [place] [address] Care Team Providers Care Train Gate Attendant Name Role Phone Unavailable Primary Care Provider Unavailabl e Social History Tobacco Use Types Packs/Day Years Used Date Smoking Tobacco: Never Assessed Comments Unknown Sex and Gender Information Value Date Recorded Sex Assigned at Not on file Legal Sex Female 11:30 PM EST Gender Identity Not on file Sexual Orientation Not on file Plan of Treatment Health Maintenance Due Date Last Done Comments Breast Cancer Screening 1969 DTaP,Tdap,and Td Vaccines (1 - Tdap) 1988 Hepatitis B Vaccines (1 of 3 - 19+ 3-dose series) 1988 Cervical Cancer Screening: P ap Smear 1990 Pneumococcal Vaccine: 50+ Years (1 of 1 - PCV) 2019 Zoster Vaccines (1 of 2) 2019 Colorectal Cancer Screening: Colonoscopy 10/13/2022 Depression Screening 10/13/2022 HIV Screening 10/13/2022 Hepatitis C Screening 10/13/2022 Social Influencers of Health Screening 10/13/2022 COVID-19 Vaccine (3 - 2023-2 5 season) 2024 03/27/2021, 03/06/2021 Influenza Vaccine (Season Ended) 2025 HIB Vaccines Aged Out No longer eligi ble based on patient's age to complete this topic HPV Vaccines Aged Out No longer eligi ble based on patient's age to complete this topic Hepatitis A Vaccines Aged Out No long er eligible based on patient's age to complete this topic IPV Vaccines Aged Out No longer eligi ble based on patient's age to complete this topic MMR Vaccines Aged Out No longer eligi ble based on patient's age to complete this topic Meningococcal ACWY Vaccine Aged Out N o longer eligible based on patient's age to complete this topic Meningococcal B Vaccine Aged Out No l onger eligible based on patient's age to complete this topic Pneumococcal Vaccine: Pediatrics (0 to 5 Years) and At-Risk Patients (6 to 64 Years) Aged Out No longer eligible b ased on patient's age to complete this topic RSV Immunization Patients Under 20 months Aged Out No longer eligible b ased on patient's age to complete this topic Varicella Vaccines Aged Out No longer eligible based on patient's age to complete this topic
--- OUTSIDE RECORDS SUMMARY | 2025-03-30 14:42 | XMS_ITS | Encounter Summary ---
Author Organization [facility] Address [address] [place] [address] [place] [address] Phone Care Team Providers Care Chamfering Machine Operator Name Role Phone Sandy Jaime NP Primary Care Provider [phone] Encounter Details Date Type Department Care Team (Late st Contact Info) Description 03/24/2025 Orders Only [facility] Center for [facility] Medicine [address], [address] [place] [address] Chong Wayne MD [address] [place] [address] [email or web address] Other chronic pain (Primary Dx) Social History Tobacco Use Types Packs/Day Years Used Date Smoking Tobacco: Former Cigarettes 1 14 0 02/12/1985 - 02/12/1999 Smokeless Tobacco: Former Alcohol Use Standard Drinks/Week Comments Yes 0 (1 standard drink = 0.6 oz pur e alcohol) socially Education Answer Date Recorded Are you interested in more education? Not on milena e 03/07/2023 Are you concerned about learning? Not on file 03/07/2023 No 03/07/2023 No 03/07/2023 Digital Access Answer Date Recorded No 04/05/2023 No 04/05/2023 Reliable internet access at home? Not on file 04/05/2023 Device with a working camera? Not on file Comments No Sex and Gender Information Value Date Recorded Sex Assigned at Female 09/20/2024 4:33 PM EST Legal Sex Female 10:32 PM EDT Gender Identity Female 09/20/2024 4:33 PM EST Sexual Orientation Straight 09/20/2024 4: 33 PM EST documented as of this encounter Plan of Treatment Upcoming Encounters Date Type Department Care Team (Late st Contact Info) Description 04/29/2025 8:30 AM EDT Appointment [facility] Center for Pain Medicine [address], [address] [place] [address] Chong Wayne MD [address] [place] [address] [email or web address] documented as of this encounter Results * [place] Fluoroscopy (03/25/2025 11:19 AM EDT) Narrative [facility] IMG INTERFACES - 03/25/2025 11:19 AM EDT Fluoroscopy was provided during this procedure. us Chong Wayne MD IMG [place] MISC Final Result [facility] IMG INTERFACES documented in this encounter Visit Diagnoses Diagnosis Other chronic pain- Primary Other chronic pain documented in this encounter Additional Health Concerns Assessment Noted Time PHQ-2 Depression Total Score: 0 03/17/20 19 2:03 PM EDT documented as of this encounter Care Teams Chamfering Machine Operator Relationship Specialty Start Date End Date Sandy Jaime NP PCP - General Nurse Practitioner 09/20/24 documented as of this encounter Additional Source Comments The information contained in this document represents components of the legal health record. It is not the complete legal health record.[facility]
--- OUTSIDE RECORDS SUMMARY | 2025-03-30 14:42 | XMS_ITS | Encounter Summary ---
Author Organization [facility] Address [address] [place] [address] [place] [address] Phone Care Team Providers Care Dipper And Drier Name Role Phone Sandy TAVERA Primary Care Provider [phone] Encounter Details Date Type Department Care Team ([facility] st Contact Info) Description 03/25/2025 11:00 AM EDT Ancillary Procedure [facility] Imaging Bedside Ultrasound VRT [address] [place] [address] Chong Wayne MD [address] [place] [address] [email or web address] Other chronic pain Social History Tobacco Use Types Packs/Day Years [...] Upcoming Encounters Date Type Department Care Team ([facility] st Contact Info) Description 04/29/2025 8:30 AM EDT Appointment [facility] Center for Pain Medicine [address], [address] [place] [address] Chong Wayne MD [address] [place] [address] [email or web address] documented as of this encounter Procedures Procedure Name Priority Date/Time Associated Diagnosis Comments [place] FLUOROSCOPY Routine 03/25/2025 11:19 AM EDT Other chronic pain documented in this encounter Results * [place] Fluoroscopy (03/25/2025 11:19 AM EDT) Narrative [facility] IMG INTERFACES - 03/25/2025 11:19 AM EDT Fluoroscopy was provided during this procedure. us Chong Wayne MD IMG [place] MISC Final Result [facility] IMG INTERFACES documented in this encounter Visit Diagnoses Diagnosis Other chronic pain documented in this encounter Additional Health Concerns Assessment Noted Time PHQ-2 Depression Total Score: 0 03/17/20 19 2:03 PM EDT documented as of this encounter Care Teams Dipper And Drier Relationship Specialty Start Date End Date Sandy Jaime NP PCP - General Nurse Practitioner 09/20/24 documented as of this encounter Additional Source Comments The information contained in this document represents components of the legal health record. It is not the complete legal health record.[facility]
--- OUTSIDE RECORDS SUMMARY | 2025-03-30 14:42 | XMS_ITS | Clinical Summary ---
Author Organization [facility] Address [address] [place] [address] Care Team Providers Care Marketing Budget Analyst Name Role Phone Unavailable Primary Care Provider Unavailabl e Allergies Active Allergy Reactions Criticality Noted Date Comments Clindamycin/Lincomycin Diarrhea 10/23/2016 cdiff Codeine Rash Low 10/23/2016 Duloxetine Hcl Rash Low 02/14/2017 Erythromycin Anaphylaxis High 10/23/2016 Penicillins Anaphylaxis High 10/23/2016 Oxycodone-Acetaminophen Itching 10/23/2016 Sulfa Antibiotics Anaphylaxis High 10/23/2016 Medications Medication Sig Dispensed Refills Start Date End Date Status PREMPRO 0.625-5 MG per tabletIndications:Post menopausal Osteoporosis Take 1 tablet by mouth daily. 30 tablet 0 11/21/2017 Active hydroCHLOROthiazide (HYDRODIURIL) tablet 12.5 mg 0 10/28/2018 Active amLODIPine-benazepril (LOTREL 5-20) 5-20 MG per capsule 0 09/01/2018 Active buPROPion (WELLBUTRIN XL) 300 MG 24 hr tabletIndications:Alexandra re episode of recurrent major depressive disorder, without psychotic features (HCC) Take 1 tablet (300 mg total) by mouth daily. 90 tablet 1 01/11/2019 Active escitalopram (LEXAPRO) 20 MG tabletIndications:Matilde r Depressive Disorder Take 1 tablet (20 mg total) by mouth daily. 90 tablet 1 01/11/2019 Active buPROPion (WELLBUTRIN XL) 150 MG 24 hr tabletIndications:Alexandra re episode of recurrent major depressive disorder, without psychotic features (HCC) TAKE 1 TABLET BY MOUTH EVERY DAY 30 tablet 0 02/03/2019 Active traZODone (DESYREL) 100 MG tablet Take 1 tablet (100 mg total) by mouth every night at bedtime. 90 tablet 0 02/03/2019 Active traZODone (DESYREL) 50 MG tablet TAKE 1/2 TO 1 TABLET BY MOUTH EVERY NIGHT AT BEDTIME 30 tablet 0 02/24/2019 Active clonazePAM (KlonoPIN) 0.5 MG tablet Take 1 tablet (0.5 mg total) by mouth every night at bedtime as needed for anxiety. 30 tablet 0 03/15/2019 Active Active Problems Problem Noted Date Diagnosed Date Major depressive disorder without psychotic feat ures 07/20/2015 PTSD (post-traumatic stress disorder) 06/01/2015 Family History Medical History Relation Name Comments Alcohol abuse Brother Drug abuse Brother Suicide Attempts Brother Depression Mother Alcohol abuse Son Drug abuse Son Relation Name Status Comments Brother Mother Son Social History Tobacco Use Types Packs/Day Years Used Date Smoking Tobacco: Never Smokeless Tobacco: Never Tobacco Cessation:Counseling Given: No Alcohol Use Standard Drinks/Week Comments No 0 (1 standard drink = 0.6 oz pur e alcohol) Sex and Gender Information Value Date Recorded Sex Assigned at Not on file Gender Identity Not on file Sexual Orientation Not on file Last Filed Vital Signs Vital Sign Reading Time Taken Comments Blood Pressure 106/71 11/21/2017 9:18 AM EST Pulse 87 11/21/2017 9:18 AM EST Temperature 36.9 ??C (98.5 ??F) 11/21/2017 9:16 AM ES T Respiratory Rate 18 11/21/2017 9:18 AM EST Oxygen Saturation 99% 11/13/2017 3:10 AM EST Inhaled Oxygen Concentration - - Weight 62.6 kg (138 lb) 11/16/2017 8:23 AM EST Height 160 cm (5' 3 ) 11/12/2017 7:28 PM EST Body Mass Index 24.45 11/12/2017 7:28 PM EST Plan of Treatment Health Maintenance Due Date Last Done Comments Hepatitis B Vaccines (1 of 3 - 3-dose series) 1969 Hepatitis C Screening 1969 COVID-19 Vaccine (#1) 04/18/1970 Depression Screening 1981 Preventative Health Evaluation 1987 DTap / Tdap / Td (1 - Tdap) 1988 Cervical Cancer Screening (P ap Smear) 1990 Colon Cancer Screening (Colonoscopy) 2014 Breast Cancer Screening (Mammogram) 2019 Shingrix-Zoster Vaccine (1 of 2) 2019 Influenza Vaccine (#1) 2024 Pneumococcal Vaccine Aged Out No long er eligible based on patient's age to complete this topic RSV Ped < 20 months Aged Out No longe r eligible based on patient's age to complete this topic Advance Directives For more information, please contact: [phone] Documents on File Type Date Recorded Patient Security Director Expl anation Advance Directive and Living Will 11/25/2017 Advance Directive and Living Will 06/16/2015 9:22 AM Latest Code Status on File Code Status Date Activated Date Inactivated Comments Full Code 11/13/2017 5:45 AM 11/21/2017 10:34 PM This code status was ascertained in the following way: per unit protocol.
--- OUTSIDE RECORDS SUMMARY | 2025-03-30 14:42 | XMS_ITS | Clinical Summary ---
Author Organization [facility] Address [address] [place] [address] Phone Care Team Providers Care Loader Operator Supervisor Name Role Phone YeniSandy NP Primary Care Provider [phone] Allergies Active Allergy Reactions Criticality Noted Date Comments Clindamycin Diarrhea,GI Upset 04/22/2016 C-diff colitis cdiff Other Reaction(s): got c. diff Codeine Other (See Comments),Rash Low 04/22/2016 Duloxetine Rash Low 11/09/2024 Duloxetine Hcl Rash Low 02/14/2017 Erythromycin Anaphylaxis,Rash High 04/22/2016 Penicillins Anaphylaxis High 04/22/2016 Sulfa (Sulfonamide Antibiotics) Anaphylaxis,Hives High 10/23/2016 Other Reaction(s): Erythromycin Medications buPROPion (WELLBUTRIN XL) 300 MG ER 24 hr tablet Take 300 mg by mouth. 9 Active senna (SENOKOT) 8.6 mg tablet Take 1 tablet by mouth 2 (two) times a day. 40 tablet 9 Active hydrOXYzine (ATARAX) 25 MG tablet TAKE 1 TABLET BY MOUTH FOUR TIMES A DAY NEEDED FOR ANXIETY Active riboflavin, vitamin B2, 400 mg Tab RIBOFLAVIN 400 MG TABLET, 0 Refills, Maintenance, 08/13/23 15:31:00 EDT 3 Active riboflavin, vitamin B2, 400 mg Tab RIBOFLAVIN 400 MG TABLET, 0 Refills, Maintenance, 08/13/23 3:31:00 PM EDT 3 Active sennosides (SENNA ORAL) Take by mouth. 4 Active cyanocobalamin, vitamin B-12, 2,500 mcg sublingual tablet 3 Active eletriptan (RELPAX) 40 MG tablet Active estradioL (ESTRACE) 0.01 % (0.1 mg/gram) vaginal cream Place 1 g vaginally. 4 Active famotidine (PEPCID) 20 MG tablet Take 20 mg by mouth. 4 Active magnesium oxide (MAG-OX) 400 mg (241.3 mg elemental) tablet 3 Active ondansetron (ZOFRAN-ODT) 4 MG disintegrating tablet TAKE 1-2 TABLETS BY MOUTH 2 TO 3 TIMES A DAY NEEDED FOR NAUSEA AND VOMITING FOR 30 DAYS 4 Active ondansetron (ZOFRAN) 8 mg Soln in NS IVPB Active pantoprazole (PROTONIX) 40 MG tablet Take 40 mg by mouth. 4 026 Active polyethylene glycol (MIRALAX) 17 gram/dose powder 1 Active scopolamine (TRANSDERM-SCOP) 1 mg over 3 days Activ e traZODone (DESYREL) 100 MG tablet Take 100 mg by mouth. 3 Active cyclobenzaprine (FLEXERIL) 5 MG tabletIndications: Sacroiliac joint dysfunction of both sides Take 1-2 tablets (5-10 mg total) by mouth nightly at bedtime. 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/2025 Sacroiliac joint dysfunction of both sides 12/13 Hypertension 02/12/2019 Chronic pelvic pain in female Encounters Date Type Department Care Team Description 03/25/2025 11:00 AM EDT Ancillary Procedure [facility] Imaging Bedside Ultrasound VRT [address] [place] [address] Chong Wayne MD Other chronic pain 03/25/2025 10:47 AM EDT - 03/25/2025 11:59 PM EDT Hospital Encounter [facility] Center for Pain Medicine [address], [address] [place] [address] Chong Wayne MD Discharge Disposition: Home or Self Care 03/24/2025 Orders Only [facility] Center [facility] [address], [address] [place] [address] Chong Wayne MD Other chronic pain (Primary Dx) 02/24/2025 9:26 AM EDT - 02/24/2025 11:59 PM EDT Hospital Encounter [facility] Center for Pain Medicine [address] [place] [address], [address] [place] [address] Chong Wayne MD Discharge Disposition: Home or Self Care 01/20/2025 6:10 AM EDT - 01/20/2025 11:59 PM EDT Hospital Encounter [facility] for Pain Medicine [address] [place] [address], [address] [place] [address] Chong Wayne MD Discharge Disposition: Home or Self Care from Last 3 Months Family History Medical History Relation Comments Coronary artery disease Brother Coronary artery disease Father Stroke Maternal Grandfather Stroke Maternal Grandmother Coronary artery disease Sister Relation Status Comments Brother Father Maternal Grandfather Maternal Grandmother Sister Social History Tobacco Use Types Packs/Day Years Used Date Smoking Tobacco: Former Cigarettes 1 14 0 02/12/1985 - 02/12/1999 Smokeless Tobacco: Former Tobacco Cessation:Counseling Given: Not Answered Alcohol Use Standard Drinks/Week Comments Yes 0 [...] Orientation Straight 09/20/2024 4: 33 PM EST Last Filed Vital Signs Vital Sign Reading Time Taken Comments Blood Pressure 115/65 03/25/2025 11:23 AM EDT Pulse 83 03/25/2025 11:23 AM EDT Temperature 37.2 ??C (98.9 ??F) 03/25/2025 11:04 AM E DT Respiratory Rate 15 02/15/2019 10:45 AM EDT Oxygen Saturation 99% 03/25/2025 11:23 AM EDT Inhaled Oxygen Concentration - - Weight 59 kg (130 lb) 11/09/2024 9:23 AM EST Height 160 cm (5' 3 ) 11/09/2024 9:23 AM EST Body Mass Index 23.03 11/09/2024 9:23 AM EST Plan of Treatment Upcoming Encounters Date Type Department Care Team (Late st Contact Info) Description 04/29/2025 8:30 AM EDT Appointment [facility] Center for [facility] Medicine [address], [address] [place] [address] Chong Wayne MD [address] [place] [address] [email or web address] Health Maintenance Due Date Last Done Comments Adult Td,Tdap Booster 1969 HEPATITIS C SCREENING 1987 HIV ONE-TIME SCREENING (18-6 5 YEARS) 1987 PAP SMEAR 1990 MAMMOGRAM 2009 COLOGUARD 2014 COLONOSCOPY 2014 COLORECTAL CANCER SCREENING 2014 FIT TEST 2014 FOBT 2014 SIGMOIDOSCOPY 2014 VIRTUAL COLONOSCOPY 2014 PNEUMOCOCCAL VACCINES (50+ years) (1 of 1 - PCV) 2019 ZOSTER VACCINES (1 of 2) 2019 DEPRESSION SCREENING 03/17/2020 03/17/2019 LIPID PANEL 05/31/2024 05/31/2019 COVID-19 VACCINE (3 - 2023-2 5 season) 2024 03/27/2021, 03/06/2021 BLOOD PRESSURE 05/09/2025 11/09/2024 SMOKING STATUS SCREENING (On ce After 26 Yrs) Completed 11/09/2024 HEPATITIS A VACCINES Aged Out No long er eligible based on patient's age to complete this topic HIB VACCINES Aged Out No longer eligi ble based on patient's age to complete this topic MENINGOCOCCAL VACCINES (ACWY) Aged Out No longer eligible based on patient's age to complete this topic MENINGOCOCCAL VACCINES (B) Aged Out N o longer eligible based on patient's age to complete this topic Medical Devices Not on file Procedures Procedure Name Priority Date/Time Associated Diagnosis Comments FL FLUOROSCOPY Routine 03/25/2025 11:19 AM EDT Other chronic pain from Last 3 Months Results * [place] Fluoroscopy (03/25/2025 11:19 AM EDT) Narrative [facility] IMG INTERFACES - 03/25/2025 11:19 AM EDT Fluoroscopy was provided during this procedure. Chong Wayne MD IMG [place] MISC Final Result [facility] IM INTERFACES from Last 3 Months Insurance [place] MEDIC[place] PPO BLUE REPLACEMENT MEDICARE PART A & B MEDICARE PART A & [place] [address] [place] [address] MEDICARE PPO BLUE REPLACEMENT MEDICARE PART A & B Member Subscriber Plan / Payer (Ef fective 2024-) Name:Loyda Jerome Member ID:[id number] Relation to Subscriber:Self Name:Loyda Jerome Subscriber ID:[id number] Payer ID:[id number] Group ID:Not on file Type:Medicare Address: [id number] MEDICARE PART A & [place] [address] MEDICARE PPO BLUE REPLACEMENT MEDICARE PART A & B [place] BLUE REPLACEMENT MEDICARE PART A & B Care Teams Loader Operator Supervisor Relationship Specialty Start Date End Date Sandy Jaime NP PCP - General Nurse Practitioner 09/20/24 Additional Source Comments The information contained in this document represents components of the legal health record. It is not the complete legal health record.[facility]
--- OUTSIDE RECORDS SUMMARY | 2025-03-30 14:42 | XMS_ITS | Encounter Summary ---
Author Organization [facility] Address [address] [place] [address] [place] [address] Phone Care Team Providers Care Petrophysicist Name Role Phone Florence Villanueva MD Primary Care Provider [phone] Sandy Jaime NP Primary Care Provider [phone] Encounter Details Date Type Department Care Team (Late st Contact Info) Description 02/15/2019 Procedure Pass BWF Periop 1st floor [address] [place] [address] Social History Tobacco Use Types Packs/Day Years Used Date Smoking Tobacco: Former Cigarettes 1 14 0 02/12/1985 - 02/12/1999 Smokeless Tobacco: Former Alcohol Use Standard Drinks/Week Comments Yes 0 (1 standard drink = 0.6 oz pur e alcohol) socially Comments No Sex and Gender Information Value Date Recorded Sex Assigned at Female 09/20/2024 4:33 PM EST Legal Sex Female 10:32 PM EDT Gender Identity Female 09/20/2024 4:33 PM EST Sexual Orientation Straight 09/20/2024 4: 33 PM EST documented as of this encounter Plan of Treatment Upcoming Encounters Date Type Department Care Team (Late st Contact Info) Description 04/29/2025 8:30 AM EDT Appointment [facility] Center for Pain Medicine [address], [address] [place] [address] Chong Wayne MD [address] [place] [address] [email or web address] documented as of this encounter Visit Diagnoses Not on filedocumented in this encounter Care Teams Petrophysicist Relationship Specialty Start Date End Date Florence Villanueva MD [address] [id number] PCP - General Internal Medicine 01/13/19 09/19/24 Sandy Jaime NP [address] [place] [id number] PCP - General Nurse Practitioner 09/20/24 documented as of this encounter Additional Source Comments The information contained in this document represents components of the legal health record. It is not the complete legal health record.[facility]
--- OUTSIDE RECORDS SUMMARY | 2025-03-30 14:42 | XMS_ITS | Encounter Summary ---
Author Organization [facility] Address [address] [place] [address] [place] [phone] Phone Care Team Providers Care Human Development Professor Name Role Phone Sandy Jaime NP Primary Care Provider [phone] Reason for Visit * Reason Comments Procedure Visit * Outpatient Procedure (Routine) - Closed Specialty Diagnoses / Procedures Referred By Contact Referred To Contact Anesthesiology / Pain Medicine Diagnoses SI Joint Injection - 01424 Procedures PAIN PRIOR AUTH PROCEDURE ([facility] ONLY) INJECTION JOINT Chong Wayne MD [address] [place] [id number] Phone: tel: fax: mailto:[email or web address] Chong Wayne MD [address] [place] [phone] Phone: tel: fax: mailto:[email or web address] Referral ID Status Reason Start Date Expiration Date Visits Re quested Visits Authorized [id number] Closed 03/25/2025 04/24/2025 1 1 Encounter Details Date Type Department Care Team (Late st Contact Info) Description 03/25/2025 10:47 AM EDT - 03/25/2025 11:59 PM EDT Hospital Encounter [facility] [address] [place] [address], [address] [place] [id number] Chong Wayne MD [address] [place] [phone] [email or web address] Discharge Disposition: Home or Self Care Social History Tobacco Use Types Packs/Day Years [...] PM EST documented as of this encounter Last Filed Vital Signs Vital Sign Reading Time Taken Comments Blood Pressure 115/65 03/25/2025 11:23 AM EDT Pulse 83 03/25/2025 11:23 AM EDT Temperature 37.2 ??C (98.9 ??F) 03/25/2025 11:04 AM E DT Respiratory Rate - - Oxygen Saturation 99% 03/25/2025 11:23 AM EDT Inhaled Oxygen Concentration - - Weight - - Height - - Body Mass Index - - documented in this encounter Medications at Time of Discharge cyanocobalamin, vitamin B-12, 2,500 mcg sublingual tablet 12/09/2022 cyclobenzaprine (FLEXERIL) 5 MG tabletIndications:S acroiliac joint dysfunction of both sides Take 1-2 tablets (5-10 mg total) by mouth nightly at bedtime. 60 tablet 3 12/13/2024 eletriptan (RELPAX) 40 MG tablet estradioL (ESTRACE) 0.01 % (0.1 mg/gram) vaginal cream Place 1 g vaginally. 07/20/2024 famotidine (PEPCID) 20 MG tablet Take 20 mg by mouth. 04/13/2024 magnesium oxide (MAG-OX) 400 mg (241.3 mg elemental) tablet 11/10/2022 ondansetron (ZOFRAN-ODT) 4 MG disintegrating tablet TAKE 1-2 TABLETS BY MOUTH 2 TO 3 TIMES A DAY NEEDED FOR NAUSEA AND VOMITING FOR 30 DAYS 10/27/2024 pantoprazole (PROTONIX) 40 MG tablet Take 40 mg by mouth. 07/01/2024 polyethylene glycol (MIRALAX) 17 gram/dose powder 11/08/2021 riboflavin, vitamin B2, 400 mg Tab RIBOFLAVIN 400 MG TABLET, 0 Refills, Maintenance, 08/13/23 3:31:00 PM EDT 08/13/2023 scopolamine (TRANSDERM-SCOP) 1 mg over 3 days sennosides (SENNA ORAL) Take by mouth. 03/23/2024 traZODone (DESYREL) 100 MG tablet Take 100 mg by mouth. 11/08/2023 buPROPion (WELLBUTRIN XL) 300 MG ER 24 hr tablet Take 300 mg by mouth. 01/11/2019 hydrOXYzine (ATARAX) 25 MG tablet TAKE 1 TABLET BY MOUTH FOUR TIMES A DAY NEEDED FOR ANXIETY ondansetron (ZOFRAN) 8 mg Soln in NS IVPB riboflavin, vitamin B2, 400 mg Tab RIBOFLAVIN 400 MG TABLET, 0 Refills, Maintenance, 08/13/23 15:31:00 EDT 08/13/2023 senna (SENOKOT) 8.6 mg tablet Take 1 tablet by mouth 2 (two) times a day. 40 tablet 02/15/2019 documented as of this encounter Progress Notes Only the most recent of 2 notes is shown. * Yunier Oropeza MD - 03/25/2025 11:00 AM EDT Images from the original note were not included. ? [facility] Date of service: 03/25/25 PROCEDURE VISIT: RIGHT SI joint injection Patient Information: Loyda Jerome Primary Care/Referring Physician: Sandy Jaime NP Chief Complaint: Low back pain INTERVAL HISTORY? ? This is a a very pleasant 54 y.o. patient who returns today for the scheduled procedure. Patient was last seen on 02/24/25 for a follow up appointment to discuss their right sided low back pain. She continues to experience unchanged symptoms and are document in full in that visit note. She denies new onset numbness, tingling, weakness, bowel or bladder dysfunction, falls. She has not had any recent infections or antibiotic use. She does not take any blood thinning medications. There have been no changes to the patient's medication regimen. There have been no changes to the patient's medical history. Britt Lazo wishes to proceed with the planned procedure today. Of note, the patient endorses that after any injection procedures in the past she has had a period of vagal symptoms where she feels light headed and dizzy with low blood pressure. These episodes happen after all injections and are self limiting with time, ice packs and improved with the head of bed down. EXAM Vitals: 03/25/25 1123 BP: 115/65 Pulse: 83 Temp: SpO2: 99% GENERAL: In no acute distress. Well-developed and well nourished. PSYCHOLOGICAL: Alert and oriented. Cooperative, normal stated mood, congruent affect. SKIN: No rashes or open wounds involving posterior torso, posterior pelvis, lower extremities. NEUROLOGIC: Ambulates with reciprocal gait pattern. Right Sacroiliac Joint Injection:? The patient positioned herself in a prone position on the fluoroscopy table. The skin over the lower back area was prepped with ChloroPrep, and draped in a sterile fashion. AP and oblique fluoroscopyimaging was used to indentify the right sacroiliac joint. The fluoroscope was rotated to the contralateral oblique position of the joint to identify the point of maximal lucency between the sacrum and the medial border of the iliac crest. The fluoroscope was then tilted approximately 10 degrees caudad and the inferior pole of the sacroiliac joint was identified. The skin and subcutaneous tissue were then anesthetized with infiltration of 0.5 mL of 1% lidocaine with a 1.5 in. 25 g needle. A 3 ??inch 25 G spinal needle was then advanced in a co-axial view towards the the intraarticular space at the inferior pole. Once a change in resistance was encountered indicating entry into the joint space, a lateral view confirmed the needle tip position to be intraarticular. After negative aspirationfor blood, approximately 0.3 mL of Omnipaque contrast was injected and visualized to be intraarticular. A mixture of 40 mg of triamcinolone diluted in 1 mL of bupivacaine 0.5% was then injected. The stylet was then replaced and the needle was withdrawn. Anesthesia: local anesthesia Complications: none ASSESSMENT In summary, Loyda Jerome is a 54 y.o. F who presented today for scheduled procedure. She did experience a period of vasovagal symptoms afterwards which self resolved over 15 minutes with head of bed down, ice packs to the neck and back. She was in stable condition with normal vitals signs and back to her normal baseline at the time of discharge. PLAN: ??1. The patient was advised to contact the Pain Center without delay for any of the following:? 1. Fever, chills or night sweats? 2. New onset of severe sharp pain? 3. Any new upper/lower extremity weakness or numbness? 4. Any questions regarding the procedure??? 5. If unable to contact the Pain Center, patient instructed to go to local Emergency Room. ? 2. Follow-up -RTC in 4-6 weeks for reevaluation. ? Thank you for involving us in the care of this patient. The patient was seen and plan discussed together with attending Dr. Jaylyn Oropeza MD Pain Medicine Fellow, [facility] Department of Anesthesiology, Critical Care, and Pain Medicine Chronic Pain Management - Attending Procedure Attestation Prior to start of the procedure, benefits and risks of the procedure were discussed and she was given ample opportunity to ask questions. A timeout was performed including verification of the patient's name and date of . I was present for the entirety of the procedure and performed the procedure with the help of my trainee. Sincerely, Chong De La O MD Attending Physician [facility] Department of Anesthesiology, Critical Care and Pain Medicine [address] [place] [address] ??[place] [phone] documented in this encounter Plan of Treatment Upcoming Encounters Date Type Department Care Team (Late st Contact Info) Description 04/29/2025 8:30 AM EDT Appointment [facility] [address] [facility], [address] [place] [address] Chong Wayne MD [address] [place] [address] [email or web address] documented as of this encounter Visit Diagnoses Diagnosis Arthropathy of sacroiliac joint- Primary Lumbar facet arthropathy Spondylosis 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 It is not the complete legal health record.[facility]
== END 2025-03-30 16:15 | disposition home or self-care (01) ==
LOC: HO.HSMS 14:29
PROVIDERS: PCP Nurse Practitioner Family; Visit Provider Nurse Practitioner Family
DX: H81.93 Unspecified disorder of vestibular function, bilateral (principal); G43.009 Migraine without aura, not intractable, without status migrainosus; F07.81 Postconcussional syndrome; F09 Unspecified mental disorder due to known physiological condition
CPT/HCPCS: 99214

== ENCOUNTER → 2025-03-30 14:29 | Outpatient (BNVA) | payer MEDICARE, SELFPAY | PROVIDERS: PCP Nurse Practitioner Family; Visit Provider Nurse Practitioner Family ==

== ENCOUNTER 2025-10-27 13:36 | Outpatient (AMB) | payer MEDICARE, SELFPAY ==
--- NOTE | 2025-10-27 13:30 | A.OFFVIS_ITS ---
Intake Visit Reasons: Follow up Intake Note: Patient following up Allergies codeine Allergy (Severe, Verified 03/30/25 14:29) Rash duloxetine Allergy (Severe, Verified 03/30/25 14:29) Rash Penicillins Allergy (Severe, Verified 03/30/25 14:29) Anaphylaxis Sulfa (Sulfonamide Antibiotics) Allergy (Severe, Verified 03/30/25 14:29) Anaphylaxis clindamycin Allergy (Unknown, Verified 03/30/25 14:29) Unknown erythromycin base Allergy (Unknown, Verified 03/30/25 14:29) Unknown Medication List - Last Reconciled 10/27/25 by ANG Kim acetazolamide 250 mg PO BID PRN 7 days cholecalciferol (vitamin D3) PO duloxetine 60 mg PO DAILY eletriptan 40 mg PO Q2-4H PRN 30 days magnesium oxide 400 mg PO BEDTIME 90 days ondansetron 4 - 8 mg (1 - 2 x 4 mg) PO BID-TID PRN 30 days pantoprazole 40 mg PO DAILY propranolol 10 mg PO BID 90 days riboflavin (vitamin B2) 400 mg PO DAILY 30 days scopolamine base 1 patch transdermal Q72H PRN 14 days trazodone 100 mg PO BEDTIME HPI Comments Details: 55-yr-old female presents for f/u televideo visit via [employer]- for postconcussive syndrome and ELIZ. She states her case has been settled, which is a relief, but it was very stressful situation. She has continued routine appointments w/ Sandy Marin PT, which helps when her head feels more buzzing and dizzy. She recently did the dry needling with the PT, and status feeling a little bit better at this point. However again she often needs to repeat this. She feels like she has better able to accept her condition and limitations. She continues to need cognitive supports. Her friends have laminated her recipes, so that she can radha which ingredients she has added. She can still be inconsistent in her baking, which may be due to forgetting an ingredient or just not feeling well overall. She is driving, but only during the daytime and tries not to drive if it is not draining. She finds the eletriptan to be more effective than the naratriptan. 03/30/2025, HPI: Patient notes that her blood pressure has been more elevated recently, with systolic BP up to 160. She plans to follow-up with PCP regarding this. She is scheduled for NEUROSURGICAL PHYSICIAN ASSISTANT intake in May 2025. She has not heard from neuropsychology office to schedule follow-up exam. She is continuing to work w/ PT, on vestibular s/s, as well as some of the cognitive s/s. Patient's vestibular physical therapist has reached out to us with concerns that patient continues to have frequent vestibular in migraine symptoms despite compliance with her overall treatment regimen. She continues to have periods of 1-2 weeks of daily severe Loyda Loyda migraine attacks, and then may have 1-2 weeks with 1 severe migraine attack lasting 1-2 days per week. She continues to be quite photophobic Migraine continues to be triggered by head movements, increased activity, looking at a computer for greater than 5-10 minutes, reading a physical book. Eletriptan has been more effective than sumatriptan, however her insurance no longer covers eletriptan. * Baseline migraine characteristics: Bilateral, right greater than left, occipital or frontal pressure headache associated with photophobia, phonophobia, nausea, brain fog, activity intolerance- has to sit still and upright. She continues to have bouts of dizziness, nausea, and balance difficulties, which last several minutes, and again she needs to sit down and be still. When she is able to move again, she avoids the previous triggering activity, and thus tries to do something else instead. She does actively try to avoid both dizziness and migraine triggers. Patient reports she was able to obtain her [employer] driver's license again, however she states she is not able to drive in any meaningful manner, as driving elicits both dizziness and migraine. Patient reports she continues to have cognitive difficulties, such as word searching difficulties, losing her train of thought. 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 Thus, she has needed to throw out baked goods and supplies. This is frustrating for her, as she would like to be able to be more active. Her is supportive. She continues to see her therapist on a regular basis to help her manage anxiety and PTSD symptoms related to adapting to her new health status and neurocognitive limitations. Patient states her long-term disability renewal was denied, as they did not feel her symptoms, or the documentation of her symptoms, would prevent her from being able to work a full-time setting. 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 and ability to multi task [facility] Medical History Stage 2 chronic kidney disease TMJ arthralgia Depression with anxiety PTSD (post-traumatic stress disorder) Pelvic floor dysfunction Insomnia HLD (hyperlipidemia) History of hypertension GRETCHEN (generalized anxiety disorder) Endometriosis Diverticulosis Constipation Surgical History (Updated 03/30/25 @ 14:31 by RUDI Zepeda) Hx of cholecystectomy Hx of appendectomy H/O rectocele repair H/O ovarian cystectomy H/O: hysterectomy History of right salpingo-oophorectomy Status post anterior colporrhaphy History of left salpingo-oophorectomy Family History Father Coronary artery disease Hyperlipidemia HTN (hypertension) Brother Coronary artery disease Myocardial infarction Sister Coronary artery disease Maternal Grandmother Stroke Maternal Grandfather Stroke Social History Alcohol intake: current Patient Tobacco Use Status: Never used Tobacco Physical Exam Const General: cooperative Nutritional Appearance: average body habitus Orientation/consciousness: patient oriented x3 Resp Effort & Inspection: normal respiratory effort and able to speak in complete sentences Neuro Other: Alert and oriented x3 with mild short-term memory lapses. Photophobia General: patient oriented x3 Psych Appearance: grossly normal Mental Status: mental status grossly normal Speech and movement: Normal speech and movement present Affect: normal affect Attitude: cooperative Telehealth Telehealth Telehealth Platform: Telephone Location of provider rendering services: practice address Location of patient: address on file Patient Identification confirmed using: Name, : Yes Telehealth method: voice only Patient verbally consented to treatment: Yes Patient verbally consented to billing insurance company: Yes Patient informed of any privacy concerns related to visit: Yes Minutes spent on Phone/Video with Pt.: 30 Assessment & Plan Assessment & Plan (1) Postconcussive syndrome: Code(s): F07.81 - Postconcussional syndrome Category: Medical (2) Cognitive dysfunction: Code(s): F09 - Unspecified mental disorder due to known physiological condition Category: Medical (3) 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 ? For overall postconcussive management: Continue to try to optimize good self-care, including but not limited to maintaining a healthy diet, adequate fluid intake, adequate sleep, and engaging in regular physical and social activity. Track headaches ? For cognitive difficulties: Will request follow-up neuropsych evaluation to assess status of neurocognitive functioning. NEUROSURGICAL PHYSICIAN ASSISTANT pushpa & tx as ordered- for postconcussive cognitive difficulties. Patient has stopped bupropion per prescribers advice. Torsten barrow previously reviewed- respectively disagree that patient's cognitive symptoms can not be secondary to her repeated concussions in 2019, and again in April 2022 in which she developed ongoing vestibular dysfunction symptoms, and a 3rd concussion in October 2022, at which time she was still having vestibular symptoms from the prior concussion, but then developed further headache, dizziness, and cognitive difficulties. Patient's cognitive difficulties include both reported short-term memory lapses, word-finding difficulty, brain fog, which are exacerbated during her dizziness and migraine headaches. Please note, that by definition, in migraine, patient will have normal interictal neurological presentation. Further, cogniphobia is a recognized feature in both migraine and mild traumatic brain injury, and this is known to impact patient's testing ability, especially when patient is symptomatic during neuropsychological testing. Previous tx trials- Methylphenidate caused drowsiness ? For vestibular s/s: Scopolamine patch q 72hr- prn boat/water travel. Hold Acetazolamide, could consider retrial for air travel. Continue vestibular therapy. We will request vestibular therapy notes. Consider trial of verapamil, amitripyline. ? For acute postconcussive treatment: Continue Zofran prn. Continue eletriptan 40 mg tab at onset of migraine attack, may repeat in 2 hours. Max of 2 tabs per day. Previous acute migraine medication trials: Fioricet- helpful but stopped when her migraines subsided. Sumatriptan not effective. Rizatriptan not fully effective. Naratriptan not effective Acute migraine medication contraindications: None at this time Future considerations: Nurtec or Ubrelvy. ? For postconcussive headache prevention: Continue blue light filtering glasses. Riboflavin 400mg qam Magnesium 400mg qhs Start Propranolol IR 10 mg b.i.d. * Potential side effects include but are not limited to fatigue, lightheadedness, low blood pressure, low heart rate, asthma/respiratory disease exacerbation, weight gain, hair loss, sexual dysfunction. Previous migraine prevention medication trials: None Migraine prevention medication contraindications: None ? Patient is again advised to abstain from work, as she is unable to work on a computer longer than 5-10 minutes at a time, can not repetitively move her head or bend over, and cognitive difficulties prevent her from doing more than 1 cognitively taxing activity at a time, additionally although headaches have improved since the last concussion in 2021, patient continues to have at least 1-2 disabling migraine headache days per week and recurrent episodes of 1-2 weeks of daily disabling migraine headaches, during which time she has marked increase in activity intolerance and exacerbation of brain fog/cognitive dysfunction. ? She is advised to follow-up in clinic in 6 months or sooner prn. Medications: Changed From propranolol 10 mg PO BID 30 days 60 tabs 6RF To propranolol 10 mg PO BID 180 tabs 4RF 90 days From magnesium oxide may hold for loose stools 400 mg PO BEDTIME 30 days 30 tabs 6RF To magnesium oxide may hold for loose stools 400 mg PO BEDTIME 90 tabs 4RF 90 days Refilled scopolamine base 1 patch transdermal Q72H PRN 4 ea 1RF motion sickness 14 days eletriptan do not exceed 2 doses per 24 hrs 40 mg PO Q2-4H PRN 12 tabs 12RF migraine headache 30 days ondansetron 4 - 8 mg (1 - 2 x 4 mg) PO BID-TID PRN 30 tabs 1RF nausea and vomiting 30 days riboflavin (vitamin B2) 400 mg PO DAILY 30 tabs 12RF 30 days Discontinued naratriptan Discontinued Reason: Doctor's Order take 1/2 - 1 tab at onset of headache; if no relief may repeat 1 tab after at least 4 hrs; max = 2 tabs/24 hrs orally PRN; 30 days 12 tabs 6RF migraine headache Coding Level of Care Code Tele Est Pt Level 4 (14960) Diagnoses Postconcussive syndrome F07.81 Cognitive dysfunction F09 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
--- OUTSIDE RECORDS SUMMARY | 2025-10-27 17:48 | XMS_ITS | Clinical Summary ---
Author Organization [facility] Address [address] [place] [address] Care Team Providers Care Humanities Division Chair Name Role Phone Unavailable Primary Care Provider [...] 2019 Zoster Vaccines (1 of 2) 2019 Depression Screening 11/10/2024 COVID-19 Vaccine (3 - 2024-2 6 season) 2025 03/27/2021, 03/06/2021 Influenza Vaccine (#1) 2025 RSV Immunization Adult Patients (1 - 1-dose 75+ series) 2044 HIB Vaccines Aged Out No longer eligi [...]
--- OUTSIDE RECORDS SUMMARY | 2025-10-27 17:48 | XMS_ITS | Clinical Summary ---
Author Organization [facility] Prior to 04/09/25 Address [address] [place] [address] Care Team Providers Care Inventory Worker Name Role Phone Unavailable Primary Care Provider [...] 87 11/21/2017 9:18 AM EST Temperature 36.9 C (98.5 F) 11/21/2017 9:16 AM EST Respiratory Rate 18 11/21/2017 9:18 AM EST [...] (1 of 2) 2019 Influenza Vaccine (#1) 2025 Pneumococcal Vaccine Aged Out No long er eligible based on patient's age to complete this topic RSV Ped < 20 months Aged Out No longe r eligible based on patient's age to complete this topic Advance Directives For more information, please contact: [phone] Documents on File Type Date Recorded Patient Cone Picker Expl anation Advance Directive and Living Will 11/25/2017 Advance Directive and Living Will 06/16/2015 9:22 AM Latest Code Status on File Code Status Date Activated Date Inactivated Comments Full Code 11/13/2017 5:45 AM 11/21/2017 10:34 PM This code status was ascertained in the following way: per unit protocol.
--- OUTSIDE RECORDS SUMMARY | 2025-10-27 17:49 | XMS_ITS | Clinical Summary ---
Author Organization [facility] Address [address] [place] [id number] Phone Care Team Providers Care Truck Repair Supervisor Name Role Phone YeniSandy NP Primary Care Provider [phone] Allergies Active Allergy Reactions Criticality Noted Date [...] Hypertension 02/12/2019 Chronic pelvic pain in female Family History Medical History Relation Comments Coronary [...] 83 03/25/2025 11:23 AM EDT Temperature 37.2 C (98.9 F) 03/25/2025 11:04 AM EDT Respiratory Rate 15 02/15/2019 10:45 AM EDT Oxygen Saturation 99% 03/25/2025 11:23 AM EDT Inhaled Oxygen Concentration - - Weight 59 kg (130 lb) 11/09/2024 9:23 AM EST Height 160 cm (5' 3 ) 11/09/2024 9:23 AM EST Body Mass Index 23.03 11/09/2024 9:23 AM EST Plan of Treatment Health Maintenance Due [...] SCREENING 03/17/2020 03/17/2019 LIPID PANEL 05/31/2024 05/31/2019 BLOOD PRESSURE 05/09/2025 11/09/2024 INFLUENZA VACCINE (#1) 2025 COVID-19 VACCINE (3 - 2024-2 6 season) 2025 03/27/2021, 03/06/2021 RSV VACCINE (1 - 1-dose 75+ series) 2044 SMOKING STATUS SCREENING (On ce After 26 [...] this topic Medical Devices Not on file Insurance [employer] [place] MEDICARE PPO BLUE REPLACEMENT MEDICARE PART A & [place] [address] [place] [id number] MEDICARE PPO BLUE REPLACEMENT MEDICARE PART A & [place] [address] [place] [id number] MEDICARE PPO BLUE REPLACEMENT MEDICARE PART A & B MEDICARE PART A & B MEDICARE PPO BLUE REPLACEMENT MEDICARE PART A & B [place] [place] MED[place] P[place] BLUE REPLACEMENT MEDICARE PART A & B Care Teams Truck Repair Supervisor Relationship Specialty Start Date End Date Sandy Jaime NP PCP - General Nurse Practitioner 09/20/24 Additional Source Comments The information contained in this document represents components of the legal health record. It is not the complete legal health record.[facility]
--- OUTSIDE RECORDS SUMMARY | 2025-10-27 17:49 | XMS_ITS | Encounter Summary ---
Author Organization [facility] Address [address] [place] [address] [place] [address] Phone Care Team Providers Care Refinery Operator Crude Unit Name Role Phone Florence Villanueva MD Primary Care Provider Sandy Jaime NP Primary Care Provider [phone] Encounter Details Date Type Department Care Team (Late st Contact Info) Description 02/15/2019 Procedure Pass BWF Periop 1[address] floor [address] [place] [address] Social History Tobacco Use Types Packs/Day Years [...] as of this encounter Plan of Treatment Not on file documented as of this encounter Visit Diagnoses Not on filedocumented in this encounter Care Teams Refinery Operator Crude Unit Relationship Specialty Start Date End Date Florence Villanueva MD [address] [place] [address] [address] [place] [address] PCP - General Internal Medicine 01/13/19 09/19/24 Sandy Jaime NP [address] [place] [address] [place] [address] PCP - General Nurse Practitioner 09/20/24 documented as of this encounter Additional Source Comments The information contained in this document represents components of the legal health record. It is not the complete legal health record.[facility]
== END 2025-10-31 13:23 | disposition home or self-care (01) ==
LOC: HO.HSMS 13:36
PROVIDERS: PCP Nurse Practitioner Family; Visit Provider Nurse Practitioner Family
DX: R41.89 Other symptoms and signs involving cognitive functions and awareness (principal); F07.81 Postconcussional syndrome; H81.90 Unspecified disorder of vestibular function, unspecified ear; G43.009 Migraine without aura, not intractable, without status migrainosus
CPT/HCPCS: 99214